=== PATIENT | male | born 1970 | race Caucasian/White ===

== ENCOUNTER 2017-09-20 07:42 | Emergency (ER) | payer OTHER ==
[2017-09-20 08:08] VITALS: BP 113/74
--- NOTE | 2017-09-20 08:53 | UC ---
Angelito Love Nilda, scribed for Janee Martin MD on 09/20/17 at 0812 . Epistaxis Nasal HPI - HPI Summary HPI Summary: This patient is a 47 year old M presenting to [facility] [place] with a chief complaint of constant mild nasal congestion since yesterday. Symptoms aggravated by nothing and alleviated by ibuprofen. Patient reports nonproductive cough, chills ( yesterday), fever (yesterday), and sore throat (resolved). Patient denies ear pain, SOB, and body aches. Recent sick contact with son who has similar symptoms. Pt states on Lisinopril. Flu vaccine not UTD. Pt states hes a nonsmoker and he drinks occasionally. Pt notes he is traveling soon. Patients medications reviewed. - History of Current Complaint Stated Complaint: STUFFY NOSE Hx Obtained From: Patient Onset/Duration: Sudden Onset, Lasting Days - yesterday, Still Present Timing: Constant Severity Currently: Mild Aggravating Factor(s): Nothing Alleviating Factor(s): Nothing - ibuprofen - Allergies/Home Medications Allergies/Adverse Reactions: Allergies Allergy/AdvReac Type Severity Reaction Status Date / Time Ceftriaxone [From Rocephin] Allergy GI Upset Verified 09/20/17 08:04 Amoxicillin AdvReac Diarrhea Verified 09/20/17 08:04 Codeine AdvReac See Comment Verified 09/20/17 08:04 Home Medications: Home Medications Ibuprofen TAB* [Advil TAB*] 09/20/17 [History] PMH/Surg Hx/FS Hx/Imm Hx Previously Healthy: No Cardiovascular History: Hypertension Other History Of: Negative For: Anticoagulant Therapy - Surgical History Surgical History: Yes Surgery Procedure, Year, and Place: [place], Vasectomy, tonsillectomy - Family History Known Family History: Positive: Diabetes - Social History Lives: With Family Alcohol Use: Occasionally Substance Use Type: None Smoking Status (MU): Never Smoked Tobacco Review of Systems Constitutional: Fever - yesterday, Chills - yesterday ENT: Sore Throat - resolved, Sinus Congestion, Other - negative ear pain Respiratory: Cough, Other - negative SOB Musculoskeletal: Other: - negative body aches All Other Systems Reviewed And Are Negative: Yes Physical Exam Triage Information Reviewed: Yes Appearance: Well-Appearing, No Pain Distress, Well-Nourished Vital Signs: Initial Vitals Temp Pulse Resp BP Pulse Ox 97.8 F 83 16 113/74 99 09/20/17 08:05 09/20/17 08:05 09/20/17 08:05 09/20/17 08:05 09/20/17 08:05 Vital Signs Reviewed: Yes Eye Exam: Normal Eyes: Positive: Conjunctiva Clear ENT: Positive: Pharynx normal, Nasal congestion, TMs normal, Other - mild PND no erythema, no exudate uvula midline Dental Exam: Normal Neck exam: Normal Neck: Positive: Supple, Nontender, No Lymphadenopathy Respiratory Exam: Normal Respiratory: Positive: Chest non-tender, Lungs clear, Normal breath sounds, No respiratory distress, No accessory muscle use Cardiovascular Exam: Normal Cardiovascular: Positive: RRR, No Murmur, Pulses Normal Abdominal Exam: Normal Abdomen Description: Positive: Nontender, No Organomegaly, Soft Bowel Sounds: Positive: Present Musculoskeletal Exam: Normal Musculoskeletal: Positive: Strength Intact Neurological Exam: Normal Neurological: Positive: Alert Psychological Exam: Normal Skin Exam: Normal Re-Evaluation - Re-Evaluation First Eval Re-Evaluation Time: 09:09 Comment: Reviewed flu test results with pt. Epistaxis Nasal Course/Dx - Course Course Of Treatment: Pt present with nasal congestion and mild PND. Pt well appearing with stable vital signs on non concerning exam. Will check flu. hydrate. motrin/apapp. flonase. decongestant. secretion precaution - Differential Dx/Diagnosis Provider Diagnoses: URI Discharge - Discharge Plan Condition: Stable Disposition: HOME Prescriptions: Fluticasone NASAL SPRAY 50MCG* [Flonase NASAL SPRAY 50MCG*] 2 spray BOTH NARES DAILY #1 btl Patient Education Materials: Upper Respiratory Infection (ED) Referrals: Josef Pablo MD [Primary Care Provider] - Additional Instructions: - Stay well hydrated. Drink plenty of non-alcoholic, on-caffinated beverages - Okay to alternate ibuprofen (Advil, Motrin) and Tylenol every 3hours for pain and fever. Take with food - Okay to use nasal spray as prescribed - Okay to intermittently take decongestant - These infections are spread by secretions - do NOT share eating or drinking utensils - clean items you share with other people such as cell phones, computer mouse, TV remote, computer tablets, etc. Once you start to feel better , change your pillowcase and your toothbrush - contact your doctor or return with questions or concern The documentation as recorded by the Angelito purcell Nilda accurately reflects the service I personally performed and the decisions made by , Janee Martin MD.
== END 2017-09-20 09:29 | disposition home or self-care (01) ==
LOC: UCEAST 07:42
DX: J06.9 Acute upper respiratory infection, unspecified (principal); I10 Essential (primary) hypertension; Z88.1 Allergy status to other antibiotic agents; Z88.5 Allergy status to narcotic agent
CPT/HCPCS: 87502; 99212; G0463